=== PATIENT | male | born 1960 | race Caucasian/White ===

== ENCOUNTER → 2018-06-03 | Outpatient (CLI) | payer BC, OTHER | LOC: M RAD 09:59 | DX: R10.821 Right upper quadrant rebound abdominal tenderness (principal) ==

== ENCOUNTER → 2018-07-27 | Outpatient (CLI) | payer BC, OTHER | LOC: M RAD 07:24 | DX: R10.9 Unspecified abdominal pain (principal) | CPT/HCPCS: J2805 ==

== ENCOUNTER → 2019-03-19 | Outpatient (CLI) | payer BC, OTHER ==
[~2019-03-19] MED LIST: ALPR0.25 PO; ATOR1TAB21 PO; LISI20TA PO; METO1TAB32 PO; OMEP40CA2 PO
--- NOTE | 2019-03-19 12:27 | REP ---
RIGHT TOES, FOUR VIEWS: HISTORY: Right great toe pain. There is no acute fracture or dislocation. The joint spaces are normal in appearance. IMPRESSION: There is no acute fracture or dislocation. Electronically Signed by Ramos Tate MD 03/19/2019 12:53 P
== END ==
LOC: M WUC 11:37
PROVIDERS: ATTEND Physician Assistant
DX: M10.9 Gout, unspecified (principal)

== ENCOUNTER → 2021-05-16 | Outpatient (CLI) | payer BC, OTHER ==
[~2021-05-16] MED LIST changes: +ALLO100T; -LISI20TA PO; +LISI20TA35 PO; -OMEP40CA2 PO; +OMEP40CA4 PO; +SUCR1TAB56
== END ==
LOC: M LABSMTC 09:45
PROVIDERS: ATTEND Anesthesiology
DX: Z01.812 Encounter for preprocedural laboratory examination (principal); Z20.822 Contact with and (suspected) exposure to COVID-19

== ENCOUNTER 2021-05-21 11:06 | Day surgery (SDC) | payer BC, OTHER ==
[~2021-05-21] VITALS: Ht 177.8 cm; Wt 83.9 kg
[~2021-05-21 11:06] MED LIST changes: +NS 1,000 ML IV ONE
--- NOTE | 2021-05-21 13:07 | ROOR ---
Patient Name: Ramos Cazares Procedure Date: 05/21/2021 12:51 PM Date of : 1960 Age: 61 Room: [facility] Gender: Male Note Status: Finalized Procedure: Upper Endoscopy + Biopsies Indications: Heartburn, Exclusion of Hill's esophagus Providers: Jaime Avery MD Referring MD: LARA CHONG MD Requesting Provider: Medicines: Monitored Anesthesia Care Complications: No immediate complications. Procedure: Pre-Anesthesia Assessment: - The heart rate, respiratory rate, oxygen saturations, blood pressure, adequacy of pulmonary ventilation, and response to care were monitored throughout the procedure. The Endoscope was introduced through the mouth, and advanced to the second part of duodenum. The upper GI endoscopy was accomplished without difficulty. The patient tolerated the procedure well. Findings: The Z-line was variable and was found 40 cm from the incisors. Multiple biopsies were obtained with cold forceps for evaluation to rule out Hill's Esophagus randomly at the gastroesophageal junction. A small hiatal hernia was present. No other significant abnormalities were identified in a careful examination of the stomach. Biopsies were taken with a cold forceps in the gastric antrum for Helicobacter pylori testing. The exam of the duodenum was otherwise normal. Impression: - Z-line variable, 40 cm from the incisors. - Small hiatal hernia. - Multiple biopsies were obtained at the gastroesophageal junction. - Biopsies were taken with a cold forceps for Helicobacter pylori testing. - The examination was otherwise normal. Recommendation: - Patient has a contact number available for emergencies. The signs and symptoms of potential delayed complications were discussed with the patient. Return to normal activities tomorrow. Written discharge instructions were provided to the patient. - High fiber diet. - Discharge patient to home. - Follow an antireflux regimen. - Continue present medications. - Await pathology results. - Telephone GI clinic for pathology results in 1 week. - Return to referring physician. - The findings and recommendations were discussed with the patient's family. Procedure Code(s): --- Professional --- 56792, Esophagogastroduodenoscopy, flexible, transoral; with biopsy, single or multiple Diagnosis Code(s): --- Professional --- K22.8, Other specified diseases of esophagus K44.9, Diaphragmatic hernia without obstruction or gangrene R12, Heartburn CPT copyright 2019 [employer]. All rights reserved. The codes documented in this report are preliminary and upon email designer review may be revised to meet current compliance requirements. Jaime Avery MD Jaime Avery MD 05/21/2021 1:07:04 PM Electronically signed by Jaime Avery MD Number of Addenda: 0 Note Initiated On: 05/21/2021 12:51 PM Estimated Blood Loss: Estimated blood loss: none.
--- NOTE | 2021-05-21 13:24 | ROOR ---
Patient Name: Ramos Cazares Procedure Date: 05/21/2021 12:51 PM Date of : 1960 Age: 61 Room: [facility] Gender: Male Note Status: Finalized Procedure: Total Colonoscopy to Cecum + ileoscopy + Bx Indications: Colon cancer screening in patient at increased risk: Colorectal cancer in father, High risk colon cancer surveillance: Personal history of colonic polyps Providers: Jaime Avery MD Referring MD: LARA CHONG MD Requesting Provider: Medicines: Monitored Anesthesia Care Complications: No immediate complications. Procedure: Pre-Anesthesia Assessment: - The heart rate, respiratory rate, oxygen saturations, blood pressure, adequacy of pulmonary ventilation, and response to care were monitored throughout the procedure. The Colonoscope was introduced through the anus and advanced to the terminal ileum, with identification of the appendiceal orifice and IC valve. The colonoscopy was performed without difficulty. The patient tolerated the procedure well. The quality of the bowel preparation was excellent. Findings: The perianal and digital rectal examinations were normal. Non-bleeding internal hemorrhoids were found during retroflexion. The hemorrhoids were small and Grade I (internal hemorrhoids that do not prolapse). A small polyp was found in the descending colon. The polyp was sessile. The polyp was removed with a cold biopsy forceps. Resection and retrieval were complete. The exam was otherwise without abnormality on direct and retroflexion views. The terminal ileum appeared normal. Impression: - Non-bleeding internal hemorrhoids. - One small polyp in the descending colon, removed with a cold biopsy forceps. Resected and retrieved. - The examination was otherwise normal on direct and retroflexion views. - The examined portion of the ileum was normal. - The exam was otherwise normal to the cecum. Recommendation: - Patient has a contact number available for emergencies. The signs and symptoms of potential delayed complications were discussed with the patient. Return to normal activities tomorrow. Written discharge instructions were provided to the patient. - High fiber diet. - Discharge patient to home. - Continue present medications. - Await pathology results. - Telephone GI clinic for pathology results in 1 week. - Repeat colonoscopy in 5 years for surveillance based on pathology results. - Return to referring physician. - The findings and recommendations were discussed with the patient's family. Procedure Code(s): --- Professional --- 68293, Colonoscopy, flexible; with biopsy, single or multiple Diagnosis Code(s): --- Professional --- Z80.0, Family history of malignant neoplasm of digestive organs Z86.010, Personal history of colonic polyps K64.0, First degree hemorrhoids K63.5, Polyp of colon CPT copyright 2019 [employer]. All rights reserved. The codes documented in this report are preliminary and upon mailroom messenger review may be revised to meet current compliance requirements. Jiame Avery MD Jaime Avery MD 05/21/2021 1:24:46 PM Electronically signed by Jaime Avery MD Number of Addenda: 0 Note Initiated On: 05/21/2021 12:51 PM Estimated Blood Loss: Estimated blood loss: none.
[2021-05-21 13:50] VITALS: BP 128/78
[2021-05-21] MEDS ORDERED: propofoL 200 MG/20 ML VIAL As Ordered ONE (13:57)
[2021-05-21] MEDS ORDERED: LIDOCAINE 2% 100MG/5ML SDV (FOR ANES.) As Ordered ONE (13:57)
== END 2021-05-21 14:00 | disposition home or self-care (01) ==
LOC: M OPP 11:06
PROVIDERS: ATTEND Internal Medicine Gastroenterology
DX: Z12.11 Encounter for screening for malignant neoplasm of colon (principal); Z86.010 Personal history of colon polyps; Z80.0 Family history of malignant neoplasm of digestive organs; D12.4 Benign neoplasm of descending colon; K64.0 First degree hemorrhoids; K22.8 Other specified diseases of esophagus; K44.9 Diaphragmatic hernia without obstruction or gangrene; Z79.899 Other long term (current) drug therapy

== ENCOUNTER → 2021-09-13 | Outpatient (REF) | payer BC, OTHER ==
[~2021-09-13] MED LIST changes: -NS 1,000 ML IV ONE
== END ==
LOC: M WUC 19:05
PROVIDERS: ATTEND Physician Assistant Medical
DX: J06.9 Acute upper respiratory infection, unspecified (principal)

== ENCOUNTER → 2022-05-05 | Outpatient (CLI) | payer BC, OTHER | LOC: M WUC 14:51 | PROVIDERS: ATTEND Internal Medicine | DX: M47.812 Spondylosis without myelopathy or radiculopathy, cervical region (principal) ==

== ENCOUNTER → 2023-12-03 | Outpatient (CLI) | payer BC, OTHER | LOC: M WUC 11:37 | PROVIDERS: ATTEND Internal Medicine | DX: M54.9 Dorsalgia, unspecified (principal) ==

== ENCOUNTER → 2025-07-18 | Outpatient (CLI) | payer BC | LOC: M RAD 10:37 | PROVIDERS: ATTEND Physician Assistant | DX: R10.84 Generalized abdominal pain (principal) ==